=== PATIENT | male | born 2000 | race Caucasian/White ===

== ENCOUNTER 2021-10-05 01:37 | Emergency (ER) | payer MEDICAID, OTHER ==
[~2021-10-05] VITALS: Ht 182.9 cm; Wt 85.2 kg
[2021-10-05 01:42] VITALS: BP 124/54
[2021-10-05] MEDS ORDERED: IBUPROFEN 800MG TABLET PO ONE (03:00)
[2021-10-05] MEDS ORDERED: METOCLOPRAMIDE HCL 10MG TABLET PO ONE (03:00)
== END 2021-10-05 03:02 | disposition left against medical advice (07) ==
LOC: ER 01:44
DX: R51.9 Headache, unspecified (principal); R10.9 Unspecified abdominal pain
CPT/HCPCS: 99281